=== PATIENT | male | born 1995 ===

== ENCOUNTER 2023-06-19 15:38 | Emergency (ER) | payer SELFPAY ==
[2023-06-19 15:44] VITALS: BP 155/95; PULSE 107; RESP 17; TEMP 37; O2SAT 100; BMI 24.9
--- NOTE | 2023-06-19 15:48 | W.ED.GENADLT ---
HPI - General Adult General: Chief complaint: General Medical Stated complaint: rectum pain Time Seen by Provider: 06/19/23 15:45 Source: patient Mode of arrival: ambulatory History of Present Illness: 28-year-old male presents emergency room complaining of rectal pain and a bulging in the rectum. It began after he was doing some heavy lifting and pulling while playing with his dog is got some moderate discomfort has not had any rectal bleeding. He is concerned he may have a rectal prolapse is initiated several days ago. Onset (ago): day(s) (3) Location: pelvis (rectal pain) Severity: mild Quality: aching Pain Consistency: intermittent Associated symptoms: Deny chest pain, confusion, cough, diaphoresis, decreased appetite, dyspnea, fevers/chills, headache(s), malaise, nausea, rash, palpitations, seizures, short of breath, syncope, vomiting or weakness Treatments prior to arrival: none Review of Systems Const: Denies: malaise or diaphoresis Card: Denies: chest pain, palpitations or syncope Resp: Denies: dyspnea GI: Denies: nausea or vomiting Skin/Breast: Denies: rash Neuro: Denies: headache(s) or confusion PFS ED PFSH: Social History Smoking and tobacco status: never smoked Alcohol intake: current Substance/Drug Use: current Substance/Drug use frequency: daily Physical Exam Narrative: EXAM NARRATIVE: Rectal exam with nurse present visualized externalized hemorrhoid no thrombosis no active bleeding Course Vital Signs: Vital signs: Vital Signs Temperature 98.6 F 06/19/23 15:44 Pulse Rate 107 H 06/19/23 15:44 Respiratory Rate 17 06/19/23 15:44 Blood Pressure 155/95 06/19/23 15:44 Pulse Oximetry 100 06/19/23 15:44 Oxygen Delivery Me thod Room Air 06/19/23 15:44 MDM - General Adult Medical Decision Making Topical Anusol HC apply 4 times daily referral to general surgery for definitive care. No radiology studies performed this visit Discharge Plan Discharge Patient Disposition: Home Clinical Impression: External hemorrhoids Condition: Stable Prescriptions: New Anusol-HC 2.5 % cream with perineal applicator 1 applic ND QID 224 Days Qty: 30 0RF No Action amoxicillin-pot clavulanate 875-125 mg tablet 1 tab PO BID 7 Days Qty: 14 0RF Discharge Orders: Discharge ED (Routine); Ordered 06/19/23 Ordered By: Misael Carlin Referrals: Andrea Lou FNP [Primary Care Provider] - Discharge Diet: Usual diet Discharge Activity: Resume usual activity Patient Instructions: Opioid Safety, Pain Management Activity Restrictions/Additional Instructions: Case management make arrangements for follow-up with general surgery for your hemorrhoids. Coding Level of Care Code ED [place] Department Supervisor for Yanni Suresh
--- NOTE | 2023-06-19 15:59 | PC.NURSE ---
Accompanied Dr. Carlin while he did his rectal exam. Observed that the patient did have hemmorhoids on the outside of his rectum.
--- NOTE | 2023-06-20 08:18 | PC.SOCIAL ---
General Surgery Referral Referral to clinic at this time. Clinic will contact patient with appt date/time.
== END 2023-06-19 16:08 | disposition home or self-care (01) ==
PROVIDERS: Emergency Provider Family Medicine; PCP Nurse Practitioner Family
DX: K64.4 Residual hemorrhoidal skin tags (principal)
CPT/HCPCS: 99283

== ENCOUNTER 2024-01-27 18:47 | Emergency (ER) | payer SELFPAY ==
[2024-01-27 18:56] VITALS: BP 119/69; PULSE 93; RESP 16; TEMP 37.1; O2SAT 96; BMI 25.0
--- NOTE | 2024-01-27 19:13 | CTR_ITS ---
PROCEDURE INFORMATION: Exam: CT Abdomen And Pelvis Without Contrast Exam date and time: 01/27/2024 7:31 PM Age: 28 years old Clinical indication: Abdominal pain; Patient HX: C/O periumbilical pain x 3 days. PT concerned for hernia. ; Additional info: Abdominal pain, worried about umbilical hernia TECHNIQUE: Imaging protocol: Computed tomography of the abdomen and pelvis without contrast. Radiation optimization: All CT scans at this facility use at least one of these dose optimization techniques: automated exposure control; mA and/or kV adjustment per patient size (includes targeted exams where dose is matched to clinical indication); or iterative reconstruction. COMPARISON: CT abdomen pelvis w con* [id number] 12/09/2017 8:41 PM RADIATION DOSE METRICS: Total DLP (mGy-cm): 480.27 FINDINGS: Liver: Normal. No mass. Gallbladder and bile ducts: Calcified stone in the gallbladder. Pancreas: Normal. No ductal dilation. Spleen: Normal. No splenomegaly. Adrenal glands: Normal. No mass. Kidneys and ureters: Normal. No hydronephrosis. Stomach and bowel: Unremarkable. No obstruction. No mucosal thickening. Appendix: No evidence of appendicitis. Intraperitoneal space: Unremarkable. No free air. No significant fluid collection. Vasculature: Unremarkable. No abdominal aortic aneurysm. Lymph nodes: Unremarkable. No enlarged lymph nodes. Urinary bladder: Unremarkable as visualized. Reproductive: Unremarkable as visualized. Bones/joints: Unremarkable. No acute fracture. Soft tissues: Unremarkable. CT/CT abdomen pelvis wo con [id number] IMPRESSION: 1. There is a umbilical hernia containing fluid measuring 2.0 x 1.5 cm. The neck is not visualized. 2. No bowel obstruction or inflammatory process associated with the bowel. 3. No free air or significant free fluid in the abdomen or pelvis. 4. No evidence of appendicitis.
--- NOTE | 2024-01-27 19:31 | ED_ITS ---
HPI - Abdominal Pain General: Chief Complaint: Abdominal Pain Stated Complaint: Lower abd pain Time Seen by Provider: 01/27/24 19:19 History of Present Illness: 28-year-old man who presents emergency r oom with abdominal pain. Says he has been working out a lot lately and suddenly over the last day he felt some pain around his umbilicus. He says he feels something coming in and out of there. He was worried about a hernia. No nausea or vomiting. No change in bowel movements. No fevers. Review of Systems Narrative: Constitutional symptoms: Negative except as documented in HPI. Skin symptoms: Negative except as documented in HPI. Eye symptoms: Negative except as documented in HPI. ENMT symptoms: Negative except as documented in HPI. Respiratory symptoms: Negative except as documented in HPI. Cardiovascular symptoms: Negative except as documented in HPI. Gastrointestinal symptoms: Negative except as documented in HPI. Genitourinary symptoms: Negative except as documented in HPI. Musculoskeletal symptoms: Negative except as documented in HPI. Neurologic symptoms: Negative except as documented in HPI. Psychiatric symptoms: Negative except as documented in HPI. Endocrine symptoms: Negative except as documented in HPI. PFSH ED PFSH: Medical History (Updated 01/27/24 @ 20:48 by Jeimy Stephenson MD) Acute viral syndrome Social History Smoking and tobacco/nicotine status: never used tobacco/nicotine Alcohol intake: current Substance/Drug Use: current Substance/Drug use frequency: daily Physical Exam Narrative: EXAM NARRATIVE: General: Alert, no acute distress. Skin: Warm, dry. Head: Normocephalic, atraumatic. Neck: Supple, trachea midline. Eye: Extraocular movements are intact. Ears, nose, mouth and throat: mucosa moist. Cardiovascular: Regular, Normal peripheral perfusion. Respiratory: Lungs are clear to auscultation, respirations are non-labored, breath sounds are equal, Symmetrical chest wall expansion. Gastrointestinal: Soft, Nontender, Non distended, Normal bowel sounds. Musculoskeletal: Normal ROM, no deformity. Neurological: Alert and oriented, No focal neurological deficit observed. Psychiatric: Cooperative, appropriate mood & affect. Course Vital Signs: Vital signs: Vital Signs Temperature 98.7 F 01/27/24 18:56 Pulse Rate 93 01/27/24 18:56 Respiratory Rate 16 01/27/24 18:56 Blood Pressure 119/69 01/27/24 18:56 Pulse Oximetry 96 01/27/24 18:56 Oxygen Delivery Me thod Room Air 01/27/24 18:56 MDM - Abdominal Pain Medical Decision Making Medical decision making: Differential diagnosis including but not limited to and based on the above HPI, review of systems and physical exam: CT scan of the abdomen without contrast ordered to evaluate for hernia. CT of the abdomen does show a very small umbilical hernia with a small amount of fluid in it. This was reviewed and interpreted by myself emergency room physician. I also reviewed the radiology report. Assessment and plan: Umbilical hernia - Discharged home - Discussed plan with patient. Answered any questions. - Evaluation and treatment of this problem were appropriate in the emergency setting. Lab Data Labs/Radiology: Radiology Impressions Abdomen/Pelvis CT 01/27/24 19:13 IMPRESSION: 1. There is a umbilical hernia containing fluid measuring 2.0 x 1.5 cm. The neck is not visualized. 2. No bowel obstruction or inflammatory process associated with the bowel. 3. No free air or significant free fluid in the abdomen or pelvis. 4. No evidence of appendicitis. All radiology interpretation(s) finalized by discharge Discharge Plan Discharge Patient Disposition: Home Clinical Impression: Hernia, umbilical Condition: Stable Discharge Orders: Discharge ED (Routine); Ordered 01/27/24 Ordered By: Jeimy Stephenson Referrals: Andrea Lou FNP [Primary Care Provider] - 4-7 days Patient Instructions: Umbilical Hernia (ED) Activity Restrictions/Additional Instructions: Thank you for choosing [facility] for your healthcare needs today. Please realize this is an emergency room and that we are providing you with a medical screening exam and this may not be complete and all inclusive of all the testing and or work up that you may need to determine your ailment or severity of your illness. You have been screened and evaluated and felt safe for discharge. Health conditions do change or evolve sometimes and as such it is important that you follow up with your Primary Doctor to be re checked, 3-5 days is a general good time frame for follow up. You are always welcome to return to the ED for re assessment if your symptoms are worsening or you have new concerns Coding Level of Care Code ED Medical Technician Assistant for Yanni Suresh
[2024-01-27 21:05] VITALS: PULSE 90; RESP 18; O2SAT 96
== END 2024-01-27 21:05 | disposition home or self-care (01) ==
PROVIDERS: Emergency Provider Emergency Medicine; PCP Nurse Practitioner Family
DX: K42.9 Umbilical hernia without obstruction or gangrene (principal)
CPT/HCPCS: 74176; 99284

== ENCOUNTER 2024-08-16 09:05 | Emergency (ER) | payer SELFPAY ==
[2024-08-16 09:12] VITALS: BP 135/81; PULSE 69; RESP 17; TEMP 36.8; O2SAT 99; BMI 24.4
--- NOTE | 2024-08-16 11:47 | XRR_ITS ---
PROCEDURE INFORMATION: Exam: XR Chest Exam date and time: 08/16/2024 11:55 AM Age: 29 years old Clinical indication: Pain; Angina pectoris; Additional info: Cp TECHNIQUE: Imaging protocol: Radiologic exam of the chest. Views: 1 view. COMPARISON: CR XR thoracic spine 3V* [id number] 08/16/2024 11:55 AM FINDINGS: Lungs: Unremarkable. No consolidation. Pleural spaces: Unremarkable. No pleural effusion. No pneumothorax. Heart/Mediastinum: Unremarkable. No cardiomegaly. Bones/joints: Unremarkable. XR/XR chest 1V portable [id number] IMPRESSION: No acute findings.
--- NOTE | 2024-08-16 11:47 | XR_ITS ---
WS: [id number] XR thoracic spine 3V* [id number] REASON FOR EXAM: back pain FINDINGS: On the PA view there is focal deformity of the thoracic spine/vertebral bodies T5 T7 with a mild dext roscoliosis. Question congenital spinal dysraphism. Cannot further define this on the lateral view. Previous imaging does not clearly define the thoracic spine. XR/XR thoracic spine 3V* [id number] IMPRESSION: Thoracic spine abnormality which I cannot readily characterize on the current i maging. Cannot confirm as pre-existing from the previous imaging. No acute findings identified however if there has been acute/subacute trauma or clinical evidence of infection would recommend CT scan of the thoracic spine.
--- NOTE | 2024-08-16 12:38 | ED_ITS ---
HPI - Back Pain/Injury 2 General: Chief Complaint: Back Pain/Injury Stated Complaint: upper back pain Time Seen by Provider: 08/16/24 09:11 Source: patient Mode of arrival: ambulatory Limitations: no limitations History of Present Illness: Patient is a 29-year-old male who presents to the ED today with a complaint of mid back pain. Patient states earlier today he was attempting to pop his back by twisting and immediately felt pain that brought me to my knees . At this time he states he has been between his shoulder blades and shortly after the right side. He is not complaining of any numbness, tingling, loss of sensation to his arms, legs, or torso. He denies shortness of breath or difficulty breathing. Pain is somewhat worse with deep inspiration as well as coughing, moving MD elicited complaint: back pain Onset (ago): hour(s) Timing: constant Severity: moderate Similar Symptoms Previously: No Location: thoracic spine Radiation: none Exacerbating factors: movement Relieving factors: none Context: turning/twisting Associated symptoms: Deny abdominal pain, dysuria or syncope Work related injury: No Related Data Previous Rx's Medication Instructions Recorded ibuprofen 800 mg tablet 800 mg PO Q8H PRN pain #20 tabs 08/16/24 methylprednisolone 4 mg tablets in See Rx Instructions PO .COMPLEX 08/16/24 a dose pack (Medrol (Jonah)) #21 ea Allergies Allergy/AdvReac Type Severity Reaction Status Date / Time STERIOD Allergy RASH Uncoded 01/29/24 09:21 Review of Systems 2 Card: Denies: chest pain, palpitations, irregular heart rhythm, edema, swelling of feet/ankles, lightheadedness, syncope, pre-syncope, dyspnea on exertion, orthopnea, leg pain with exertion or acrocyanosis Resp: Reports: pain on inspiration; Denies: dyspnea, productive cough, wheezing, hemoptysis or chest congestion GI: Denies: abdominal pain : Denies: flank pain or dysuria Musc: Reports: back pain; Denies: neck pain, extremity pain, extremity swelling, joint pain or joint swelling Neuro: Denies: headache(s), numbness in extremities, weakness in extremities or sensory changes PFSH ED 2 PFSH: Medical History Acute viral syndrome Social History Smoking and tobacco/nicotine status: never used tobacco/nicotine Alcohol intake: current Substance/Drug Use: current Substance/Drug use frequency: daily Physical Exam 2 Const: COMMON NORMALS: no acute distress, average body habitus, patient oriented x3, no limitations, healthy appearing, alert and well nourished G ENERAL APPEARANCE: cooperative ORIENTATION/CONSCIOUSNESS: Yes awake, Yes oriented to person, Yes oriented to place and Yes oriented to time HENMT: FACE & SINUS: normal facial exam and face symmetric Neck/C-Spine: COMMON NORMALS: full ROM GENERAL: Yes normal visual inspection CERVICAL SPINE: Yes cervical ROM normal, No pain with cervical ROM and No Cervical spine tenderness Chest: COMMONS NORMALS: normal inspection of the chest and normal palpation of entire chest wall Resp: COMMON NORMALS: normal respiratory effort and clear to auscultation bilaterally AUSCULTATION: clear to auscultation bilaterally Cardio: COMMON NORMALS: regular rate and regular rhythm RATE: regular rate RHYTHM: regular rhythm GI: COMMON NORMALS: Normal to inspection, nondistended, normoactive bowel sounds present, Soft to palpation and non-tender PALPATION: Yes Soft to palpation : COMMON NORMALS: Yes no CVA tenderness BLADDER/KIDNEY EXAM: Yes no CVA tenderness Back/Pelvis: COMMON NORMALS: no CVA tenderness and straight leg raise negative bilaterally THORACIC SPINE/UPPER BACK: Yes ROM limited, Yes pain with ROM, Yes thoracic spinal tenderness and Yes paraspinal muscle tenderness Thoracic paraspinal muscle tenderness: right LUMBAR SPINE/LOWER BACK: No lumbar spinal tenderness and No paraspinal muscle tenderness PELVIS: Yes buttocks normal and No sciatic notch tenderness SACROILIAC JOINTS: Yes SI joints normal S ACRUM: no tenderness COCCYX: no tenderness BACK IMAGE (MALE): 1. TTP Extremity: COMMON NORMALS: normal to inspection, capillary refill normal and no clubbing, cyanosis or edema GENERAL: Yes normal exam except as noted Neuro: COMMON NORMALS: patient oriented x3, moves all extremities, no focal motor deficits, no sensory deficits noted and gait normal S ENSORIUM/ORIENTATION: Yes alert, Yes oriented to person, Yes oriented to place and Yes oriented to time Course 2 Vital Signs: Vital signs: Vital Signs Temperature 98.3 F 08/16/24 09:12 Pulse Rate 53 L 08/16/24 13:45 Respiratory Rate 16 12/06/24 13:45 Blood Pressure 127/72 08/16/24 13:45 Pulse Oximetry 98 08/16/24 13:45 Oxygen Delivery Me thod Room Air 08/16/24 13:45 MDM - Back Pain/Injury Medical Decision Making Patient has no acute neurologic deficits. CXR is unremarkable. Thoracic spine XR showing an un-characterizable abnormality with recommendation for CT imaging. CT imaging is essentially unremarkable. Mild disc bulging was noted and can be followed up with an outpatient MRI electively. Patient states he has muscle relaxers at home he can take. Will treat him with anti-inflammatories and steroids. Return to ED precautions given. Medical Records I reviewed the patient's medical records. Labs Radiology Impressions Chest X-Ray 08/16/24 11:47 IMPRESSION: No acute findings. Thoracic Spine X-Ray 08/16/24 11:47 IMPRESSION: Thoracic spine abnormality which I cannot readily characterize on the current imaging. Cannot confirm as pre-existing from the previous imaging. No acute findings identified however if there has been acute/subacute trauma or clinical evidence of infection would recommend CT scan of the thoracic spine. Thoracic Spine CT 08/16/24 12:49 IMPRESSION: 1. No acute fractures. 2. Mild disc bulging can be followed up with MRI thoracic spine on an elective basis. All radiology interpretation(s) finalized by discharge Discharge Plan Discharge Patient Disposition: Home Clinical Impression: Acute thoracic back pain Qualifiers: Back pain laterality: midline Qualified Code(s): M54.6 - Pain in thoracic spine Condition: Stable Prescriptions: New ibuprofen 800 mg tablet 800 mg PO Q8H PRN (Reason: pain) Qty: 20 0RF methylprednisolone [Medrol (Jonah)] 4 mg tablets,dose pack See Rx Instructions .ROUTE .COMPLEX Qty: 21 0RF Rx Instructions: orally per package directions Discharge Orders: Discharge ED (Routine); Ordered 08/16/24 Ordered By: Cate Woods Referrals: Harish Lou FNP [Primary Care Provider] - Coding Level of Care Code ED Chart Collector for Yanni Suresh
--- NOTE | 2024-08-16 12:49 | CT_ITS ---
WS: [id number] CT THORACIC SPINE TECHNIQUE: Noncontrast CT of the thoracic spine with coronal and sagittal reformatted images. CLINICAL INFORMATION: injury/pain; abnormal XR COMPARISON: None. DLP: 816.[address] scans at [facility] use at least one of these dose optimization techniques: automated e xposure control; mA and/or kV adjustment per patient size (includes targeted exams where dose is matc hed to clinical indication); or iterative reconstruction. FINDINGS: Mild thoracic curve. Mild thoracic kyphosis. No acute appearing compression fractures. A few Schmorl' s nodes in the lower thoracic spine. Minimal chronic anterior wedging in the lower thoracic spine. Sp inal canal appears patent. Posterior elements appear intact. Mild facet arthropathy in the mid thorac ic spine at T5-T7 at the apex of scoliosis. Noncalcified nodule RIGHT upper lobe measuring 7 mm. A few tiny disc extrusions in the upper thoracic spine at T3 through T5. Mild disc bulging in the low er thoracic spine. Mild spondylitic changes. CT/CT thoracic spin wo con* [id number] IMPRESSION: 1. No acute fractures. 2. Mild disc bulging can be followed up with MRI thoracic spine on an elective basis.
[2024-08-16 13:45] VITALS: BP 127/72; PULSE 53; RESP 16; O2SAT 98
[2024-08-16 14:21] VITALS: BP 116/76; PULSE 46; RESP 14; O2SAT 99
== END 2024-08-16 14:17 | disposition home or self-care (01) ==
PROVIDERS: Emergency Provider Physician Assistant; PCP Nurse Practitioner Family
DX: M54.6 Pain in thoracic spine (principal)
CPT/HCPCS: 71045; 72072; 72128; 99284

== ENCOUNTER 2024-12-20 10:15 | Emergency (ER) | payer SELFPAY ==
[2024-12-20 10:30] VITALS: BP 130/79; PULSE 77; RESP 17; TEMP 36.7; O2SAT 100; BMI 25.7
--- NOTE | 2024-12-20 12:38 | W.ED.WOUNDLC ---
HPI - Wound/Laceration General: Chief Complaint: Wound/Laceration Stated Complaint: head wound Time Seen by Provider: 12/20/24 10:40 Source: patient Mode of arrival: wheelchair Limitations: no limitations History of Present Illness: Chief Complaint: Patient is a 29-year-old male here today for evaluation of a head wound sustained this morning. 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 He has not washed or cleaned the wound prior to arrival, only wiped blood off his face. The patient has experienced slurred speech, stumbling, and confusion since the incident, along with a severe headache that has persisted for the last 4 hours. Last tetanus shot unknown. Review of Systems: - Neurological: Reports slurred speech, confusion, and severe headache. - General: Reports not having fever or chills. - Cardiovascular: Reports not having chest pain. - Respiratory: Reports not having shortness of air. Related Data Previous Rx's ?Medication ?Instructions ?Recorded ibuprofen 800 mg tablet 800 mg PO Q8H PRN pain #20 tabs 08/16/24 methylprednisolone 4 mg tablets in See Rx Instructions PO .COMPLEX 08/16/24 a dose pack (Medrol (Jonah)) #21 ea Allergies Allergy/AdvReac Type Severity Reaction Status Date / Time STERIOD Allergy RASH Uncoded 01/29/24 09:21 Review of Systems General: Reports: 10 or more systems reviewed and unremarkable except in HPI and below Neuro: Reports: headache(s), difficulty walking, Slurred speech present and other (all of pts symptoms occurred just after injury; headache still present) [facility] PFSH: Medical History Acute viral syndrome Social History Smoking and tobacco/nicotine status: never used tobacco/nicotine Alcohol intake: current Substance/Drug Use: current Substance/Drug use frequency: daily Physical Exam Const: COMMON NORMALS: patient oriented x3, no limitations, healthy appearing and alert ORIENTATION/CONSCIOUSNESS: Yes awake HENMT: COMMON NORMALS: normocephalic, Normal external nose present and moist oral mucous membranes HEAD & SCALP: normocephalic and laceration (3 cm laceration to the anterior scalp) NOSE: Normal external nose present Resp: COMMON NORMALS: normal respiratory effort Cardio: COMMON NORMALS: regular rate and regular rhythm RATE: regular rate RHYTHM: regular rhythm Extremity: COMMON NORMALS: normal to inspection and full ROM Neuro: COMMON NORMALS: patient oriented x3 SENSORIUM/ORIENTATION: Yes alert Psych: COMMON NORMALS: mental status grossly normal, Normal thought process present, cooperative and speech normal SPEECH: Yes normal speech THOUGHT PROCESS: Normal thought process present Skin: NARRATIVE SKIN EXAM: see head exam Procedures Laceration Laceration 1: Site: scalp Size (cm): 3 Description: linear Depth: simple, single layer Pre-repair: wound explored Skin layer closed with: other (ashley) Size (cm): 3-0 Number of sutures: 3 Course ED course: The patient reports sustaining a head injury this morning while using a 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 He has not washed or cleaned the wound prior to arrival, only wiped blood off his face. The patient has experienced slurred speech, stumbling, and confusion since the incident, along with a severe headache that has persisted for the last 4 hours. I discussed stapling the wound with the patient and we decided to proceed with this method. A head CT has been ordered to rule out any intracranial injury. By the time patient left, patient was significantly improved and talking and acting normally. The Tylenol did help with his headache that he was given in the ER. Wound care and follow-up instructions were discussed. Vital Signs: Vital signs: Vital Signs Temperature 98.0 F 12/20/24 10:30 Pulse Rate 77 12/20/24 10:30 Respiratory Rate 17 12/20/24 10:30 Blood Pressure 130/79 12/20/24 10:30 Pulse Oximetry 100 12/20/24 10:30 Oxygen Delivery Me thod Room Air 12/20/24 10:30 MDM - Wound/Laceration Medical Decision Making Laceration was closed with ashley. Patient presented for the laceration on his head after blunt trauma. A head CT was ordered and appears normal other than incidental finding of Chiari malformation which was discussed with the patient and he can follow-up outpatient on that. Patient's headache did improve with the Tylenol. We did discuss that patient likely has a mild concussion. Wound care was assessed along with concussion protocol recommendations. Patient will follow-up with PCP next week. Return to the ER with any new or worsening symptoms. Patient verbalized understanding and was in agreement with the treatment plan. Lab Data Radiology Impressions Head CT 12/20/24 13:33 IMPRESSION: 1. No evidence of intracranial hemorrhage or mass effect. 2. Chiari I malformation with mild crowding at the foramen magnum. This can be followed up with MRI on an outpatient elective basis. No hydrocephalus. 3. Normal roach-white differentiation. 4. No acute intracranial findings. All radiology interpretation(s) finalized by discharge Discharge Plan Discharge Patient Disposition: Home Clinical Impression: Laceration Concussion Qualifiers: Encounter type: initial encounter Loss of consciousness presence/duration: without LOC Qualified Code(s): S06.0X0A - Concussion without loss of consciousness, initial encounter Condition: Stable Prescriptions: No Action ibuprofen 800 mg tablet 800 mg PO Q8H PRN (Reason: pain) Qty: 20 0RF methylprednisolone [Medrol (Jonah)] 4 mg tablets,dose pack See Rx Instructions .ROUTE .COMPLEX Qty: 21 0RF Rx Instructions: orally per package directions Discharge Orders: Discharge ED (Routine); Ordered 12/20/24 Ordered By: Veronica Kothari Referrals: Harish Lou FNP [Primary Care Provider] - Discharge Diet: Usual diet Discharge Activity: Increase activity as tolerated Patient Instructions: Opioid Safety, Pain Management Activity Restrictions/Additional Instructions: Keep wound clean. F/U with primary care provider in 7-10 days for staple removal. Apply ice to reduce swelling. Alternate Tylenol and Motrin for pain. Rest (brain rest) recommended. No vigorous activity recommended until patient is headache and symptoms free. F/U with primary provider in 3-5 days regarding concussion. Return to the ER with any new or worsening symptoms. Print Language: Telugu Coding Level of Care Code ED [employer] for Yanni Suresh
--- NOTE | 2024-12-20 13:33 | CT_ITS ---
WS: [id number] CT HEAD TECHNIQUE: Noncontrast CT of the head obtained from the skullbase to the vertex. CLINICAL INFORMATION: head injury, slurring words, headache COMPARISON: None. DLP: 1112.[address] scans at [facility] use at least one of these dose optimization techniques: automated exposure control; mA and/or kV adjustment per patient size (includes targeted exams where dose is matched to clinical indication); or iterative reconstruction. FINDINGS: No evidence of intracranial hemorrhage or mass effect. Ventricular system and basal cisterns are patent. Chiari I malformation. No extra-axial fluid collections. No evidence of mass or mass effect. Normal roach-white differentiation. Mild mucosal thickening in the ethmoid air cells. Mastoid air cells are well aerated. Frontal scalp ashley. CT/CT head wo con* [id number] IMPRESSION: 1. No evidence of intracranial hemorrhage or mass effect. 2. Chiari I malformation with mild crowding at the foramen magnum. This can be followed up with MRI on an outpatient elective basis. No hydrocephalus. 3. Normal roach-white differentiation. 4. No acute intracranial findings.
[2024-12-20] MEDS: acetaminophen 500 mg Tablet 1000 MG PO (14:04)
[2024-12-20] MEDS: tetanus-dipt-pertussis 0.5 mL SDV IM (14:04)
[2024-12-20 14:52] VITALS: BP 138/74; PULSE 73; O2SAT 98
== END 2024-12-20 14:53 | disposition home or self-care (01) ==
PROVIDERS: Emergency Provider Physician Assistant; PCP Nurse Practitioner Family
DX: S01.01XA Laceration without foreign body of scalp, initial encounter (principal); S06.0X0A Concussion without loss of consciousness, initial encounter; W22.8XXA Striking against or struck by other objects, initial encounter; Z23 Encounter for immunization
CPT/HCPCS: 12002; 70450; 90471; 90715; 99284; J9999